=== PATIENT | female | born 1975 | race Caucasian/White ===

== ENCOUNTER → 2018-03-29 | Outpatient (REF) | payer OTHER | END | disposition home or self-care (01) | DRG 948 | LOC: LAB 13:27 | PROVIDERS: ATTEND Internal Medicine | DX: R79.89 Other specified abnormal findings of blood chemistry (principal); N39.0 Urinary tract infection, site not specified; R53.83 Other fatigue; E55.9 Vitamin D deficiency, unspecified ==